=== PATIENT | female | born 1975 | race African-American/Black ===

== ENCOUNTER 2016-10-20 03:17 | Emergency (ER) | payer BC, OTHER ==
[~2016-10-20] VITALS: Ht 177.8 cm; Wt 127.0 kg
--- NOTE | 2016-10-20 03:26 | NUR ---
PT WALKED INTO ER C/O SUDDEN ONSET OF SOB [id number] PRIOR TO ARRIVAL. PT STATES "I WOKE UP W/ SOB AND HEADACHE." PT IS ALERT, ORIENTED X 4, BP 160/100, HR 75, SPO2 RA 98%, RESP 21... PT STATES NO PAIN, JUST DISCOMFORT IN CHEST...MD AT BEDSIDE...
[2016-10-20] MEDS ORDERED: ALBUTEROL SULFATE 2.5 MG/3 ML NEBU NEB ONE (03:45)
[2016-10-20] MEDS ORDERED: ALBUTEROL SULFATE 2.5 MG/3 ML NEBU ONE (03:58)
[2016-10-20 04:22] LABS: CALCIUM 8.4 mg/dL (8.5-10.1); CARBON DIOXIDE 28 mmol/L (21-32); CHLORIDE 103 mmol/L (98-107); CREATININE 0.8 mg/dL (0.6-1.3); GFR 97 mL/min (>60); GLUCOSE 128 mg/dL (74-106); POTASSIUM 4.2 mmol/L (3.5-5.1); SODIUM SERUM 136 mmol/L (136-145); UREA NITROGEN, BLOOD 11 mg/dL (7-18)
[2016-10-20 04:28] LABS: BASOPHILS % (AUTO) 0.7 % (0.0-2.0); EOSINOPHILS # (AUTO) 0.1 K/uL (0.0-0.7); EOSINOPHILS % (AUTO) 1.7 % (0.0-7.0); HEMATOCRIT 39.7 % (37.0-47.0); HEMOGLOBIN 13.8 g/dL (12.0-16.0); LYMPHOCYTES # (AUTO) 2.5 K/uL (0.8-4.8); LYMPHOCYTES % (AUTO) 40.2 % (20.5-51.5); MEAN CORPUSCULAR HEMOGLOBIN 30.7 uug (27.0-31.0); MEAN CORPUSCULAR HGB CONC 35 g/dL (32.0-37.0); MEAN CORPUSCULAR VOLUME 88.4 fL (81.0-99.0); MONOCYTES # (AUTO) 0.4 K/uL (0.1-1.30); MONOCYTES % (AUTO) 6.9 % (0.0-11.0); NEUTROPHILS # (AUTO) 3.2 K/uL (1.8-8.9); NEUTROPHILS % (AUTO) 50.5 % (38.5-71.5); PLATELET COUNT (AUTO) 265 K/uL (150-450); RED BLOOD CELL COUNT(AUTO) 4.48 MIL/uL (4.20-5.40); WHITE BLOOD COUNT (AUTO) 6.2 K/uL (4.0-11.2)
[2016-10-20 04:30] LABS: LACTIC ACID 0.9 mmol/L (0.4-2.0)
[2016-10-20 04:33] LABS: TROPONIN I < 0.017 ng/mL (0.00-0.056)
[2016-10-20 04:39] LABS: ALANINE AMINOTRANSFERASE 32 U/L (14-59); ALBUMIN 3.3 g/dL (3.4-5.0); ALKALINE PHOSPHATASE 48 U/L (50-136); ASPARTATE AMINOTRANSFERASE 31 U/L (15-37); BILIRUBIN,DIRECT < 0.1 mg/dL (0.0-0.2); BILIRUBIN,TOTAL 0.3 mg/dL (0.2-1.0); NT-PRO BNP 63 pg/mL (0-125); TOTAL PROTEIN, SERUM 7.5 g/dL (6.4-8.2)
[2016-10-20 06:10] LABS: *BILIRUBIN,URIN NEGATIVE (NEGATIVE); *BLOOD, URINE NEGATIVE (NEGATIVE); *CLARITY,URINE CLEAR (CLEAR); *COLOR,URINE STRAW (YELLOW); *KETONES,URINE NEGATIVE (NEGATIVE); *PROTEIN,URINE NEGATIVE (NEGATIVE); *UROBILINOGEN,URINE 0.2 E.U./dl (NORMAL); LEUKOCYTE ESTERASE ,URINE NEGATIVE (NEGATIVE); NITRITE, URINE NEGATIVE (NEGATIVE); PH,URINE 7.5 (5.0-8.0); UGLUCOSE NEGATIVE (NEGATIVE)
[2016-10-20 06:19] LABS: BACTERIA,URINE FEW /HPF (NONE SEEN); RBC,URINE 0-3 /HPF (0-3); SQUAMOUS EPITHELIAL CELL,UR MODERATE /HPF (NONE SEEN); WBC,URINE 0-3 /HPF (0-3)
--- NOTE | 2016-10-20 07:26 | NUR ---
rec'd sbar report from tang rn, pt resting, no distress noted, monitor shows nsr, [id number]% on room air.. pt awaiting for 2nd troponin.
[2016-10-20] MEDS ORDERED: predniSONE 10 MG TABLET ONE (09:44)
[2016-10-20] MEDS ORDERED: predniSONE 50 MG TABLET ONE (09:44)
[2016-10-20] MEDS ORDERED: predniSONE 20 MG TABLET PO ONE (09:45)
--- NOTE | 2016-10-20 09:48 | NUR ---
pt d/c'd home, aci/rx x2 given. pt had iv d/c'd intact. pt got dressed and ambulated w/o diff. took all belongings.
[2016-10-20 09:51] VITALS: BP 144/72
== END 2016-10-20 09:53 | disposition home or self-care (01) ==
LOC: ER 03:31
DX: J45.909 Unspecified asthma, uncomplicated (principal); I10 Essential (primary) hypertension; F17.210 Nicotine dependence, cigarettes, uncomplicated; E66.01 Morbid (severe) obesity due to excess calories
CPT/HCPCS: 36415; 71010; 80048; 80076; 81001; 83605; 83880; 84443; 84484 ×2; 84703; 85025; 85379 ×2; 85730; 87040 ×2; 87086; 93005 ×2; 94640; 99285; A4663; J7512 ×2; 70030-TC

== ENCOUNTER 2017-05-03 05:22 | Emergency (ER) | payer OTHER ==
[~2017-05-03] VITALS: Ht 177.8 cm; Wt 113.4 kg
--- NOTE | 2017-05-03 05:57 | NUR ---
Patient discharged to home in stable conditon. Written and verbal after care instructions given. Patient verbalizes understanding of instructions.
[2017-05-03] MEDS ORDERED: LORAZEPAM 0.5 MG TABLET PO ONE (06:00)
[2017-05-03] MEDS ORDERED: LORAZEPAM 1 MG TABLET ONE (06:03)
== END 2017-05-03 05:58 | disposition home or self-care (01) ==
LOC: ER 05:26
DX: F41.0 Panic disorder [episodic paroxysmal anxiety] (principal); J45.909 Unspecified asthma, uncomplicated; F17.200 Nicotine dependence, unspecified, uncomplicated
CPT/HCPCS: A4663

== ENCOUNTER 2018-08-30 09:32 | Emergency (ER) | payer OTHER ==
[~2018-08-30] VITALS: Ht 177.8 cm; Wt 144.7 kg
[2018-08-30] MEDS ORDERED: LEVO25TA9 PO (09:48)
[2018-08-30] MEDS ORDERED: LIOT5TAB8 PO (09:48)
[2018-08-30] MEDS ORDERED: ACETAMINOPHEN ES 500 MG TABLET ONE (09:54)
[2018-08-30] MEDS ORDERED: ACETAMINOPHEN ES 500 MG TABLET PO ONE (10:00)
[2018-08-30 10:06] LABS: BASOPHILS % (AUTO) 0.9 % (0.0-2.0); EOSINOPHILS % (AUTO) 0.2 % (0.0-7.0); HEMATOCRIT 38.1 % (31.2-41.9); HEMOGLOBIN 13.1 g/dL (10.9-14.3); LYMPHOCYTES # (AUTO) 1.6 K/uL (20.0-40.0); LYMPHOCYTES % (AUTO) 30.8 % (20.5-51.5); MEAN CORPUSCULAR HEMOGLOBIN 30.5 uug (24.7-32.8); MEAN CORPUSCULAR HGB CONC 34 g/dL (32.3-35.6); MONOCYTES # (AUTO) 0.3 K/uL (2.0-10.0); MONOCYTES % (AUTO) 5.2 % (0.0-11.0); NEUTROPHILS # (AUTO) 3.3 K/uL (1.8-8.9); NEUTROPHILS % (AUTO) 62.9 % (38.5-71.5); PLATELET COUNT (AUTO) 292 K/uL (179-408); RED BLOOD CELL COUNT(AUTO) 4.28 MIL/uL (3.63-4.92); WHITE BLOOD COUNT (AUTO) 5.2 K/uL (3.8-11.8)
[2018-08-30 10:13] LABS: CARBON DIOXIDE 25 mmol/L (21-32); CHLORIDE 101 mmol/L (98-107); CREATININE 0.8 mg/dL (0.6-1.3); GLUCOSE 112 mg/dL (74-106); POTASSIUM 3.5 mmol/L (3.5-5.1); UREA NITROGEN, BLOOD 5 mg/dL (7-18)
[2018-08-30 10:19] LABS: ALANINE AMINOTRANSFERASE 30 U/L (14-59); ALKALINE PHOSPHATASE 59 U/L (50-136); ASPARTATE AMINOTRANSFERASE 15 U/L (15-37); BILIRUBIN,DIRECT 0.1 mg/dL (0.0-0.2); BILIRUBIN,TOTAL 0.4 mg/dL (0.2-1.0); LIPASE 85 U/L (73-393); TOTAL PROTEIN, SERUM 8.1 g/dL (6.4-8.2)
--- NOTE | 2018-08-30 10:55 | NUR ---
Patient discharged to home in stable conditon. Written and verbal after care instructions given. Patient verbalizes understanding of instructions.pt walks n steady gait.
--- NOTE | 2018-08-30 11:00 | NUR ---
pt pain down to 2/10.
[2018-08-30 11:01] VITALS: BP 110/77
== END 2018-08-30 11:02 | disposition home or self-care (01) ==
LOC: ER 09:32
DX: K57.32 Diverticulitis of large intestine without perforation or abscess without bleeding (principal); K80.80 Other cholelithiasis without obstruction; F17.200 Nicotine dependence, unspecified, uncomplicated; J45.909 Unspecified asthma, uncomplicated; Z79.899 Other long term (current) drug therapy
CPT/HCPCS: 36415; 83690; 85025; A4663; A9150

== ENCOUNTER 2019-06-19 07:19 | Emergency (ER) | payer OTHER ==
[~2019-06-19] VITALS: Ht 177.8 cm; Wt 145.1 kg
[~2019-06-19 07:19] MED LIST: LEVO25TA9 PO; LIOT5TAB11 PO
--- NOTE | 2019-06-19 07:35 | NUR ---
is at bedside doing the MSE.
[2019-06-19] MEDS ORDERED: IV NORMAL SALINE 1000 ML BAG IV ONE (07:45)
[2019-06-19] MEDS ORDERED: SWABABLE VALVE TRANSFER SET EA MC ONE (08:00)
[2019-06-19] MEDS ORDERED: IV NORMAL SALINE 250 ML IV ONE (08:00)
[2019-06-19] MEDS ORDERED: IOHEXOL 300MG/ML 100 ML INFUS..BTL ONE (08:00)
[2019-06-19 08:21] LABS: CREATININE 0.8 mg/dL (0.6-1.3); POTASSIUM 3.8 mmol/L (3.5-5.1)
[2019-06-19 08:29] LABS: BASOPHILS % (AUTO) 0.5 % (0.0-2.0); EOSINOPHILS # (AUTO) 0.1 K/uL (0.0-0.7); EOSINOPHILS % (AUTO) 1.9 % (0.0-7.0); HEMATOCRIT 37.6 % (31.2-41.9); HEMOGLOBIN 12.9 g/dL (10.9-14.3); LYMPHOCYTES # (AUTO) 1.3 K/uL (20.0-40.0); LYMPHOCYTES % (AUTO) 35.5 % (20.5-51.5); MEAN CORPUSCULAR HEMOGLOBIN 30.8 uug (24.7-32.8); MEAN CORPUSCULAR HGB CONC 34 g/dL (32.3-35.6); MONOCYTES # (AUTO) 0.2 K/uL (2.0-10.0); MONOCYTES % (AUTO) 6.4 % (0.0-11.0); NEUTROPHILS % (AUTO) 55.7 % (38.5-71.5); PLATELET COUNT (AUTO) 327 K/uL (179-408); RED BLOOD CELL COUNT(AUTO) 4.18 MIL/uL (3.63-4.92); WHITE BLOOD COUNT (AUTO) 3.6 K/uL (3.8-11.8)
[2019-06-19 08:33] LABS: BILIRUBIN,DIRECT 0.1 mg/dL (0.0-0.2); BILIRUBIN,TOTAL 0.4 mg/dL (0.2-1.0); TOTAL PROTEIN, SERUM 7.2 g/dL (6.4-8.2)
[2019-06-19 09:08] LABS: *BILIRUBIN,URIN 1+ (NEGATIVE); *CLARITY,URINE CLEAR (CLEAR); *COLOR,URINE YELLOW (YELLOW); *KETONES,URINE 1+ (NEGATIVE); *UROBILINOGEN,URINE 0.2 E.U./dl (NORMAL); LEUKOCYTE ESTERASE ,URINE NEGATIVE (NEGATIVE); NITRITE, URINE NEGATIVE (NEGATIVE); PH,URINE 6.5 (5.0-8.0); UGLUCOSE NEGATIVE (NEGATIVE)
[2019-06-19 09:10] LABS: *BLOOD, URINE TRACE (NEGATIVE)
[2019-06-19 09:11] LABS: *URINE HCG, QUAL NEGATIVE (NEGATIVE)
[2019-06-19 09:17] LABS: BACTERIA,URINE FEW /HPF (NONE SEEN); MUCUS,URINE FEW /LPF (0-FEW); RBC,URINE 0-3 /HPF (0-3); SQUAMOUS EPITHELIAL CELL,UR FEW /HPF (NONE SEEN); WBC,URINE 0-3 /HPF (0-3)
[2019-06-19] MEDS ORDERED: METRONIDAZOLE 500 MG/NS 100 ML PIGGYBACK IV ONE (10:00)
[2019-06-19] MEDS ORDERED: CIPROFLOXACIN IV 400 MG in PREMIXED 1 EACH IV SCH (10:00)
[2019-06-19] MEDS ORDERED: METRONIDAZOLE 500 MG/NS 100ML 100 ML IV ONE (10:04)
[2019-06-19] MEDS ORDERED: CIPROFLOXACIN IV 400 MG in PREMIXED 1 EACH IV ONE (10:08)
--- NOTE | 2019-06-19 10:20 | NUR ---
Patient is resting comfortably in bed with eyes closed. PATIENT IS PAIN FREE AT THIS TIME.
--- NOTE | 2019-06-19 11:22 | NUR ---
Patient Tranfers to outside Facility: [facility] Physician: Ebony Location: room 304-A RN: Christina accepted patient@[id number] BLS ambulance: [facility] expected time of arrival is 1230
--- NOTE | 2019-06-19 13:17 | NUR ---
[facility] REPORT GIVEN TO UN[address]
--- NOTE | 2019-06-19 13:32 | NUR ---
PATIENT DC TOOK ALL BELONGINGS. PATIENT LEFT NOT IN ANY DISTRESS IV HL. PATIENT IN [facility].
== END 2019-06-19 13:38 | disposition short-term general hospital (02) ==
LOC: ER 07:19
DX: K57.20 Diverticulitis of large intestine with perforation and abscess without bleeding (principal); L02.212 Cutaneous abscess of back [any part, except buttock and flank]; K76.0 Fatty (change of) liver, not elsewhere classified; K80.20 Calculus of gallbladder without cholecystitis without obstruction; J45.909 Unspecified asthma, uncomplicated; F17.200 Nicotine dependence, unspecified, uncomplicated; Z79.899 Other long term (current) drug therapy
CPT/HCPCS: 36415; 74177; 80048; 80076; 81000; 81001; 83690; 84703; 85025; 96361; 96365; 96367; 99285; J0744; J3490; Q9967; A4663; J7030; J7050